=== PATIENT | female | born 1960 | race Caucasian/White ===

== ENCOUNTER 2017-08-02 11:12 | Observation (INO) | payer BC ==
[~2017-08-02] VITALS: Ht 167.6 cm; Wt 75.0 kg
[2017-08-02] VITALS (7 sets, daily range): BP systolic 108–124; BP diastolic 58–73; PULSE 72–88; RESP 16–17; TEMP 96.7–98.1; O2SAT 93–98
[~2017-08-02 11:12] MED LIST: CALTTAB2 PO; CENTTAB9 PO; METR0.756 EX; OMEGCAP2 OR; SYNT137T PO; VIBR50SY PO
[2017-08-02] MEDS ORDERED: LEVO.15 PO (11:17)
--- NOTE | 2017-08-02 11:22 | PD ---
HPI Chief Complaint: Chest Pain Time Seen by Provider: 11:16 Travel History International Travel<30 days: No Contact w/Intl Traveler<30days: No Traveled to known affect area: No History of Present Illness HPI 56 y/o female presents chest pressure that goes into her jaw and arm this started yesterday. She states it feels like a tightness. She denies prior history of this. She denies any history of cardiac issues her routine cardiac workup. She states she took a baby aspirin prior to arrival. She denies any other concurrent complaints. Duration is since yesterday. PFSH Past Medical History Cancer: No Cardiovascular Problems: No Diabetes: No Endocrine: Yes (thyroid) Genitourinary: No Hepatitis: No Hiatal Hernia: No Immune Disorder: No Musculoskeletal: No Neurologic: No Psychiatric: No Reproductive: No Respiratory: No Thyroid Disease: Yes (THYROIDECTOMY) ?: Not Past Surgical History AICD: No Gynecologic Surgery: Yes (TUBAL PREG., ) Joint Replacement: No Pacemaker: No Family History Narrative Family History father with stroke Family Myocardial Infarction: No Social History Tobacco Use: No Substance Use: No Allergies-Medications (Allergen,Severity, Reaction): Coded Allergies: No Known Allergies (Unverified , 08/02/17) Reported Meds & Prescriptions Reported Meds & Active Scripts Active Reported Synthroid (Levothyroxine Sodium) 150 Mcg Tab 150 Mcg PO DAILY Review of Systems Except as stated in HPI: all other systems reviewed are Neg Physical Exam Narrative GENERAL: Well-nourished, well-developed patient. Well-appearing SKIN: Warm and dry. HEAD: Normocephalic and atraumatic. EYES: No injection or drainage. ENT: No nasal drainage noted. NECK: Supple, trachea midline. CARDIOVASCULAR: Regular rate and rhythm RESPIRATORY: Breath sounds equal bilaterally. No accessory muscle use. GASTROINTESTINAL: Abdomen soft, non-tender, nondistended. EXTREMITIES: No edema. NEUROLOGICAL: Awake and alert. Motor and sensory grossly within normal limits. Normal speech. Data Data Last Documented VS Vital Signs Date Time Temp Pulse Resp B/P (MAP) Pulse Ox O2 Delivery O2 Flow Rate FiO2 08/02/17 11:21 Room Air 08/02/17 11:20 124/65 (84) 108/71 (83) 08/02/17 11:19 97 08/02/17 11:16 98.1 88 17 Orders Orders Electrocardiogram (08/02/17 11:16) B-Type Natriuretic Peptide (08/02/17 11:16) Ckmb (Isoenzyme) Profile (08/02/17 11:16) Complete Blood Count With Diff (08/02/17 11:16) Comprehensive Metabolic Panel (08/02/17 11:16) D-Dimer (08/02/17 11:16) Magnesium (Mg) (08/02/17 11:16) Prothrombin Time / Inr (Pt) (08/02/17 11:16) Act Partial Throm Time (Ptt) (08/02/17 11:16) Troponin I (08/02/17 11:16) Chest, Single Ap (08/02/17 11:16) Ecg Monitoring (08/02/17 11:16) Bilateral Bp Monitoring (08/02/17 11:16) Iv Access Insert/Monitor (08/02/17 11:16) Oximetry (08/02/17 11:16) Aspirin Chew (Aspirin Chew) (08/02/17 11:30) Sodium Chloride 0.9% Flush (Ns Flush) (08/02/17 11:30) Nitroglycerin Sl (Nitrostat Sl) (08/02/17 11:30) Sodium Chlorid 0.9% 500 Ml Inj (Ns 500 M (08/02/17 11:30) Admit Order (Ed Use Only) (08/02/17 12:18) Labs Laboratory Tests Test 08/02/17 11:20 White Blood Count 12.8 TH/MM3 Red Blood Count 4.86 MIL/MM3 Hemoglobin 14.7 GM/DL Hematocrit 43.7 % Mean Corpuscular Volume 90.0 FL Mean Corpuscular Hemoglobin 30.2 PG Mean Corpuscular Hemoglobin Concent 33.6 % Red Cell Distribution Width 14.0 % Platelet Count 259 TH/MM3 Mean Platelet Volume 7.6 FL Neutrophils (%) (Auto) 77.7 % Lymphocytes (%) (Auto) 14.4 % Monocytes (%) (Auto) 6.8 % Eosinophils (%) (Auto) 0.7 % Basophils (%) (Auto) 0.4 % Neutrophils # (Auto) 9.9 TH/MM3 Lymphocytes # (Auto) 1.8 TH/MM3 Monocytes # (Auto) 0.9 TH/MM3 Eosinophils # (Auto) 0.1 TH/MM3 Basophils # (Auto) 0.0 TH/MM3 CBC Comment DIFF FINAL Differential Comment Prothrombin Time 10.1 SEC Prothromb Time International Ratio 0.9 RATIO Activated Partial Thromboplast Time 26.8 SEC D-Dimer Quantitative (PE/DVT) 0.42 MG/L FEU Blood Urea Nitrogen 15 MG/DL Creatinine 0.91 MG/DL Random Glucose 102 MG/DL Total Protein 7.7 GM/DL Albumin 4.3 GM/DL Calcium Level 8.8 MG/DL Magnesium Level 2.0 MG/DL Alkaline Phosphatase 84 U/L Aspartate Amino Transf (AST/SGOT) 21 U/L Alanine Aminotransferase (ALT/SGPT) 22 U/L Total Bilirubin 0.4 MG/DL Sodium Level 140 MEQ/L Potassium Level 4.1 MEQ/L Chloride Level 105 MEQ/L Carbon Dioxide Level 28.6 MEQ/L Anion Gap 6 MEQ/L Estimat Glomerular Filtration Rate 64 ML/MIN Total Creatine Kinase 63 U/L Troponin I LESS THAN 0.02 NG/ML B-Type Natriuretic Peptide 35 PG/ML MDM Medical Decision Making Medical Screen Exam Complete: Yes Emergency Medical Condition: Yes Medical Record Reviewed: Yes (pmh confirmed) Interpretation(s) EKG shows NSR, no ST elevation or depression, and no arrhythmias. No significant T-wave inversions. CBC & BMP Diagram 08/02/17 11:20 Total Protein 7.7, Albumin 4.3, Calcium Level 8.8, Magnesium Level 2.0, Alkaline Phosphatase 84, Aspartate Amino Transf (AST/SGOT) 21, Alanine Aminotransferase (ALT/SGPT) 22, Total Bilirubin 0.4 Differential Diagnosis [place], gastritis, pneumothorax, PE, musculoskeletal Narrative Course Will check blood work, chest x-ray, EKG and dose with aspirin and nitroglycerin and reevaluate ed workup no acute, agrees to [facility] [place] observation Diagnosis Primary Impression: Chest pain Qualified Codes: R07.9 - Chest pain, unspecified Admitting Information Admitting Physician Requests: Observation Luly Marte MD Aug 02, 2017 11:22
[2017-08-02] MEDS ORDERED: SODIUM CHLORIDE 0.9% FLUSH 10 ML FLUSH IVF PRN (11:30)
[2017-08-02] MEDS ORDERED: SODIUM CHLORID 0.9% 500 ML INJ 500 ML IV ONE (11:30)
[2017-08-02] MEDS ORDERED: ASPIRIN 81 MG CHEW TAB PO ONE (11:30)
[2017-08-02] MEDS ORDERED: NITROGLYCERIN 0.4 MG SL 25 TABS/BTL SL ONE (11:30)
--- NOTE | 2017-08-02 11:34 | RADRPT ---
EXAM DATE/TIME: 08/02/2017 11:18 [facility] COMPARISON: No previous studies available for comparison. INDICATIONS : Chest pain today. MEDICAL HISTORY : Carcinoma, thyroid. SURGICAL HISTORY : Removed thyroid. ENCOUNTER: Initial ACUITY: 1 day PAIN SCORE: 7/10 LOCATION: Bilateral chest FINDINGS: The cardiac silhouette is enlarged in transverse diameter. The lungs are free of acute parenchymal op acity. No effusions are identified. Osseous structures are intact. CONCLUSION: Cardiomegaly. No acute cardiopulmonary disease. Christiano Aguiar MD on August 02, 2017 at 11:32 Board Certified Radiologist. This report was verified electronically.
[2017-08-02 11:39] LABS: AUTOMATED NEUTROPHIL # 9.9 TH/MM3 (1.8-7.7); BASOPHIL % 0.4 % (0.0-2.0); EOSINOPHIL # 0.1 TH/MM3 (0-0.4); EOSINOPHIL % 0.7 % (0.0-4.0); HEMATOCRIT 43.7 % (35.0-46.0); HEMO FLAGS DIFF FINAL; LYMPH % 14.4 % (9.0-44.0); LYMPHOCYTE # 1.8 TH/MM3 (1.0-4.8); MEAN CORPUSCULAR HEMOGLOBIN 30.2 PG (27.0-34.0); MEAN CORPUSCULAR HGB CONC 33.6 % (32.0-36.0); MONO % 6.8 % (0.0-8.0); NEUT % 77.7 % (16.0-70.0); PLATELET COUNT 259 TH/MM3 (150-450); RED BLOOD COUNT 4.86 MIL/MM3 (4.00-5.30); WHITE BLOOD COUNT 12.8 TH/MM3 (4.0-11.0)
[2017-08-02 11:51] LABS: APTT (PATIENT) 26.8 SEC (24.3-30.1); INTERNATIONAL NORMALIZED RATIO 0.9 RATIO; PROTHROMBIN TIME - PATIENT 10.1 SEC (9.8-11.6)
[2017-08-02 11:57] LABS: ALT (GPT) 22 U/L (10-53)
[2017-08-02 12:01] LABS: ALKALINE PHOSPHATASE 84 U/L (45-117); ANION GAP 6 MEQ/L (5-15); AST (GOT) 21 U/L (15-37); BICARBONATE 28.6 MEQ/L (21.0-32.0); BLOOD UREA NITROGEN 15 MG/DL (7-18); CHLORIDE 105 MEQ/L (98-107); CREATINE KINASE 63 U/L (26-192); GLOMERULAR FILTRATION RATE 64 ML/MIN (>89); POTASSIUM 4.1 MEQ/L (3.5-5.1); SODIUM (NA) 140 MEQ/L (136-145); TOTAL BILIRUBIN ADULT 0.4 MG/DL (0.2-1.0)
[2017-08-02] MEDS ORDERED: ATROPINE/SCOPOLAM/HYOSCYAM/PB ELIXIR 10 ML CUP PO ONE (13:45)
[2017-08-02] MEDS ORDERED: SODIUM CHLORIDE 0.9% FLUSH 5 ML FLUSH IVF PRN (13:45)
[2017-08-02] MEDS ORDERED: ACETAMINOPHEN/HYDROcodone 325 MG/7.5 MG TAB PO PRN (13:45)
[2017-08-02] MEDS ORDERED: ONDANSETRON HCL 4 MG/2 ML VIAL IV PRN (13:45)
[2017-08-02] MEDS ORDERED: LIDOCAINE VISCOUS 2% SOLN 15 ML UDC PO ONE (13:45)
[2017-08-02] MEDS ORDERED: ALUMINUM/MAGNESIUM/SIMETH 30 ML CUP PO ONE (13:45)
[2017-08-02] MEDS ORDERED: ACETAMINOPHEN 500 MG CPLT PO PRN (13:45)
--- NOTE | 2017-08-02 13:52 | HHI.HP ---
HPI Primary Care Physician Unknown Chief Complaint Chest pain History of Present Illness This is a 56-year-old female that presents to ED with a complaint of chest discomfort that woke her 4:00 this morning. She describes it as a heaviness. It is been there constantly however intensity waxes and wanes. She is found that taking a deep breath does worsen the discomfort. She denies shortness breath nausea or diaphoresis with the discomfort. Discomfort is radiating into her left arm and up the left side of her neck. She cannot recall having issues like this in the past. Cannot recall any recent stress testing. Denies recent illness. Denies fevers or chills. Denies recent travel. Review of Systems General: Patient denies fevers, chills recent, and recent travel. HEENT: Patient denies headache, sore throat, difficulty swallowing. Cardiovascular: Has the chest discomfort as mentioned above. Denies sensation of heart beating rapidly or irregularly. No syncope. Denies diaphoresis. Respiratory: Discomfort is worsened with deep inspiration. Denies shortness of breath. Denies coughing wheezing or hemoptysis. GI: Patient denies nausea, vomiting, diarrhea, abdominal pain, bloody stools. Musculoskeletal: Patient denies joint pain or edema. Denies calf pain or edema. Neurovascular: Patient denies numbness, tingling, weakness in extremities. Denies headache. Endocrine: Denies polyuria and polydipsia. Hematologic: Denies easy bruising. Skin: Denies rash or itching. Past Family Social History Allergies: Coded Allergies: No Known Allergies (Unverified , 08/02/17) Past Medical History Hypothyroidism. She states her ankles are chronically edematous and will take Dyazide for that on an as-needed basis. Denies hypertension, hyperlipidemia, diabetes, and known CAD. Past Surgical History Cordectomy. Hernia repair. Ectopic . Reported Medications Reported Meds & Active Scripts Active Reported Synthroid (Levothyroxine Sodium) 150 Mcg Tab 150 Mcg PO DAILY Active Ordered Medications Current Medications Medications (Trade) Dose Ordered Sig/Jesus Route Start Time Stop Time Status Last Admin (NS Flush) 2 ml UNSCH PRN IVF 08/02/17 11:30 (NS Flush) 2 ml UNSCH PRN IVF 08/02/17 13:45 UNV (NS Flush) 2 ml BID IVF 08/02/17 21:00 UNV (Tylenol) 500 mg Q4H PRN PO 08/02/17 13:45 UNV ([place] 7.5-325 Mg) 1 tab Q4H PRN PO 08/02/17 13:45 UNV (Zofran Inj) 4 mg Q6H PRN IV 08/02/17 13:45 UNV (Xylocaine 2% Viscous) 10 ml STAT ONCE PO 08/02/17 13:45 08/02/17 13:46 UNV ( Liq) 10 ml NOW ONCE PO 08/02/17 13:45 08/02/17 13:46 UNV (Mag-Al Plus Susp Liq) 30 ml STAT ONCE PO 08/02/17 13:45 08/02/17 13:46 UNV Family History Denies family history of CAD. Social History Nonsmoker. Rarely has alcohol. Denies illicit drugs. Physical Exam Vital Signs Vital Signs Date Time Temp Pulse Resp B/P (MAP) Pulse Ox O2 Delivery O2 Flow Rate FiO2 08/02/17 11:21 Room Air 08/02/17 11:20 124/65 (84) 108/71 (83) 08/02/17 11:19 97 Room Air 08/02/17 11:16 98.1 88 17 124/65 (84) 98 Physical Exam GENERAL: This is a well-nourished, well-developed patient, in no apparent distress. Patient speaks in clear complete sentences. Patient is pleasant. HEENT: Head is atraumatic and normocephalic. Neck is supple without lymphadenopathy and trachea is midline. No JVD or carotid bruits. CARDIOVASCULAR: Regular rate and rhythm without murmurs, gallops, or rubs. RESPIRATORY: Clear to auscultation. Breath sounds equal bilaterally. No wheezes , rales, or rhonchi. Chest wall is nontender. No use of accessory muscles. GASTROINTESTINAL: Abdomen is nontender, nondistended. Abdomen soft. No obvious pulsatile mass or bruit. No CVA tenderness. Normal bowel sounds in all quadrants. MUSCULOSKELETAL: Patient is moving upper and lower extremities freely. No calf tenderness or edema, no Homans sign. Strong pulses in upper and lower extremities. NEUROLOGICAL: Patient is alert and oriented. Cranial nerves 2-12 are grossly intact. No focal deficits and speech is clear. SKIN: No rash and turgor is normal. Laboratory Laboratory Tests Test 08/02/17 11:20 White Blood Count 12.8 Red Blood Count 4.86 Hemoglobin 14.7 Hematocrit 43.7 Mean Corpuscular Volume 90.0 Mean Corpuscular Hemoglobin 30.2 Mean Corpuscular Hemoglobin Concent 33.6 Red Cell Distribution Width 14.0 Platelet Count 259 Mean Platelet Volume 7.6 Neutrophils (%) (Auto) 77.7 Lymphocytes (%) (Auto) 14.4 Monocytes (%) (Auto) 6.8 Eosinophils (%) (Auto) 0.7 Basophils (%) (Auto) 0.4 Neutrophils # (Auto) 9.9 Lymphocytes # (Auto) 1.8 Monocytes # (Auto) 0.9 Eosinophils # (Auto) 0.1 Basophils # (Auto) 0.0 CBC Comment DIFF FINAL Differential Comment Prothrombin Time 10.1 Prothromb Time International Ratio 0.9 Activated Partial Thromboplast Time 26.8 D-Dimer Quantitative (PE/DVT) 0.42 Blood Urea Nitrogen 15 Creatinine 0.91 Random Glucose 102 Total Protein 7.7 Albumin 4.3 Calcium Level 8.8 Magnesium Level 2.0 Alkaline Phosphatase 84 Aspartate Amino Transf (AST/SGOT) 21 Alanine Aminotransferase (ALT/SGPT) 22 Total Bilirubin 0.4 Sodium Level 140 Potassium Level 4.1 Chloride Level 105 Carbon Dioxide Level 28.6 Anion Gap 6 Estimat Glomerular Filtration Rate 64 Total Creatine Kinase 63 Troponin I LESS THAN 0.02 B-Type Natriuretic Peptide 35 Result Diagram: 08/02/17 1120 08/02/17 1120 Course Initial EKG has sinus rhythm without significant ST segment depressions or elevations. Caprini VTE Risk Assessment Caprini VTE Risk Assessment: No/Low Risk (score <= 1) Caprini Risk Assessment Model Point Value = 1 Point Value = 2 Point Value = 3 Point Value = 5 Age 41-60 Minor surgery BMI > 25 kg/m2 Swollen legs Varicose veins or History of unexplained or recurrent spontaneous Oral contraceptives or hormone replacement Sepsis (< 1 month) Serious lung disease, including pneumonia (< 1 month) Abnormal pulmonary function Acute myocardial infarction Congestive heart failure (< 1 month) History of inflammatory bowel disease Medical patient at bed rest Age 61-74 Arthroscopic surgery Major open surgery (> 45 min) Laparoscopic surgery (> 45 min) Malignancy Confined to bed (> 72 hours) Immobilizing plaster cast Central venous access Age >= 75 History of VTE Family history of VTE Factor V Leiden Prothrombin [id number] Lupus anticoagulant Anticardiolipin antibodies Elevated serum homocysteine Heparin-induced thrombocytopenia Other congenital or acquired thrombophilia Stroke (< 1 month) Elective arthroplasty Hip, pelvis, or leg fracture Acute spinal cord injury (< 1 month) Prophylaxis Regimen Total Risk Factor Score Risk Level Prophylaxis Regimen 0-1 Low Early ambulation 2 Moderate Order ONE of the following: *Sequential Compression Device (SCD) *Heparin 5000 units SQ BID 3-4 Higher Order ONE of the following medications: *Heparin 5000 units SQ TID *Enoxaparin/Lovenox 40 mg SQ daily (WT < 150 kg, CrCl > 30 mL/min) *Enoxaparin/Lovenox 30 mg SQ daily (WT < 150 kg, CrCl > 10-29 mL/min) *Enoxaparin/Lovenox 30 mg SQ BID (WT < 150 kg, CrCl > 30 mL/min) AND/OR *Sequential Compression Device (SCD) 5 or more Highest Order ONE of the following medications: *Heparin 5000 units SQ TID (Preferred with Epidurals) *Enoxaparin/Lovenox 40 mg SQ daily (WT < 150 kg, CrCl > 30 mL/min) *Enoxaparin/Lovenox 30 mg SQ daily (WT < 150 kg, CrCl > 10-29 mL/min) *Enoxaparin/Lovenox 30 mg SQ BID (WT < 150 kg, CrCl > 30 mL/min) AND *Sequential Compression Device (SCD) Assessment and Plan Assessment and Plan * Chest pain: Patient will continue to have serial cardiac enzymes and EKGs for ruling out purposes. She will be seen by Dr. Christiano Mata of cardiology in the chest pain center and likely undergo a Matthew protocol ETT if she rules out. She'll be discharged home if stress test is nonischemic with instructions to follow-up with PCP and return to ED for interval issues. * Hypothyroidism: Continue current medication. Patient is stable at this time. She is agreeable to this plan. Chad Joe Aug 02, 2017 13:52
--- NOTE | 2017-08-02 13:56 | EKG ---
Date Performed: 08/02/2017 Time Performed: 11:20:27 PTAGE: 56 years EKG: Sinus rhythm NORMAL ECG PREVIOUS TRACING : 08/01/2017 18.28 DOCTOR: Jc Billings Interpretating Date/Time 08/02/2017 13:55:58
[2017-08-02 15:12] LABS: CREATINE KINASE 55 U/L (26-192)
[2017-08-02] MEDS ORDERED: KETOROLAC TROMETHAMINE 30 MG/ML (IVP) VIAL IV PUSH ONE (17:15)
--- NOTE | 2017-08-02 17:17 | EKG ---
Date Performed: 08/02/2017 Time Performed: 14:09:47 PTAGE: 56 years EKG: Sinus rhythm ABNORMAL ECG PREVIOUS TRACING : 08/02/2017 11.20 Since previous tracing, no significant change noted DOCTOR: Christiano Mata Interpretating Date/Time 08/02/2017 17:16:14
--- NOTE | 2017-08-02 17:17 | EKG ---
Date Performed: 08/02/2017 Time Performed: 15:16:11 PTAGE: 56 years EKG: Sinus rhythm NORMAL ECG INTERPRETATION BASED ON A DEFAULT AGE OF 40 YEARS NO PREVIOUS TRACING DOCTOR: Christiano Mata Interpretating Date/Time 08/02/2017 17:15:48
--- NOTE | 2017-08-02 17:50 | RADRPT ---
EXAM DATE/TIME: 08/02/2017 17:32 [facility] COMPARISON: No previous studies available for comparison. INDICATIONS : Chest pains for one day. RADIATION DOSE: 5.57 CTDIvol (mGy) MEDICAL HISTORY : None SURGICAL HISTORY : Thyroidectomy. ENCOUNTER: Initial ACUITY: 1 day PAIN SCALE: 5/10 LOCATION: Bilateral chest TECHNIQUE: Volumetric scanning of the chest was performed. Using automated exposure control and adjustment of t he mA and/or kV according to patient size, radiation dose was kept as low as reasonably achievable to obtain optimal diagnostic quality images. DICOM format image data is available electronically for r eview and comparison. Follow-up recommendations for detected pulmonary nodules are based at a minimum on nodule size and pa tient risk factors according to Fleischner Society Guidelines. FINDINGS: LUNGS: There is mild basilar infiltrate or atelectasis, slightly worse on the left than the right. PLEURAE: There is no pleural thickening or pleural effusion. MEDIASTINUM: The heart and great vessels demonstrate no acute abnormality. There is no mediastinal or hilar lymph adenopathy. AXILLAE: Within normal limits. No lymphadenopathy. MUSCULOSKELETAL: Within normal limits for patient age. MISCELLANEOUS: The visualized upper abdominal organs demonstrate no acute abnormality. CONCLUSION: Mild basilar infiltrates. Jose Luis Barber MD on August 02, 2017 at 17:46 Board Certified Radiologist. This report was verified electronically.
[2017-08-02] MEDS: SODIUM CHLORIDE 0.9% FLUSH 5 ML FLUSH IVF SCH (20:42)
[2017-08-03 01:18] LABS: CREATINE KINASE 37 U/L (26-192)
[2017-08-03 04:00] VITALS: BP 114/62; PULSE 83; RESP 20; TEMP 99.1; O2SAT 96
[2017-08-03 07:58] VITALS: BP 105/63; PULSE 123; RESP 20; TEMP 99; O2SAT 94
[2017-08-03 08:00] VITALS: PULSE 96
--- NOTE | 2017-08-03 08:25 | PD.CARD.PN ---
Subjective Subjective Remarks Pleuritic chest discomfort has improved but still present. No other symptoms. Objective Vital Signs / I&O Vital Signs Date Time Temp Pulse Resp B/P (MAP) Pulse Ox O2 Delivery O2 Flow Rate FiO2 08/03/17 07:58 99.0 123 20 105/63 (77) 94 08/03/17 04:00 99.1 83 20 114/62 (79) 96 08/02/17 17:36 77 08/02/17 16:48 96.7 81 122/61 (81) 93 08/02/17 14:46 78 16 109/58 (75) 99 08/02/17 13:48 21 08/02/17 13:30 72 16 123/73 (90) 97 Room Air 08/02/17 11:21 Room Air 08/02/17 11:20 124/65 (84) 108/71 (83) 08/02/17 11:19 97 Room Air 08/02/17 11:16 98.1 88 17 124/65 (84) 98 I/O 08/02/17 08/02/17 08/02/17 08/03/17 08/03/17 08/03/17 07:00 15:00 23:00 07:00 15:00 23:00 Intake Total 500 ml 240 ml 220 ml Output Total 300 ml Balance 500 ml 240 ml -80 ml Intake Oral 240 ml 220 ml IV Total 500 ml Output Urine Total 300 ml # Bowel Movements 0 Physical Exam Gen.: No distress. Sitting in chair. Speaks in clear and complete sentences. Lungs: CTA Cardiac: Regular rate and rhythm without murmur gallop or rub. GI: Nontender normal bowel sounds. Laboratory Laboratory Tests Test 08/02/17 11:20 08/02/17 14:20 08/03/17 00:26 White Blood Count 12.8 TH/MM3 Red Blood Count 4.86 MIL/MM3 Hemoglobin 14.7 GM/DL Hematocrit 43.7 % Mean Corpuscular Volume 90.0 FL Mean Corpuscular Hemoglobin 30.2 PG Mean Corpuscular Hemoglobin Concent 33.6 % Red Cell Distribution Width 14.0 % Platelet Count 259 TH/MM3 Mean Platelet Volume 7.6 FL Neutrophils (%) (Auto) 77.7 % Lymphocytes (%) (Auto) 14.4 % Monocytes (%) (Auto) 6.8 % Eosinophils (%) (Auto) 0.7 % Basophils (%) (Auto) 0.4 % Neutrophils # (Auto) 9.9 TH/MM3 Lymphocytes # (Auto) 1.8 TH/MM3 Monocytes # (Auto) 0.9 TH/MM3 Eosinophils # (Auto) 0.1 TH/MM3 Basophils # (Auto) 0.0 TH/MM3 CBC Comment DIFF FINAL Differential Comment Prothrombin Time 10.1 SEC Prothromb Time International Ratio 0.9 RATIO Activated Partial Thromboplast Time 26.8 SEC D-Dimer Quantitative (PE/DVT) 0.42 MG/L FEU Blood Urea Nitrogen 15 MG/DL Creatinine 0.91 MG/DL Random Glucose 102 MG/DL Total Protein 7.7 GM/DL Albumin 4.3 GM/DL Calcium Level 8.8 MG/DL Magnesium Level 2.0 MG/DL Alkaline Phosphatase 84 U/L Aspartate Amino Transf (AST/SGOT) 21 U/L Alanine Aminotransferase (ALT/SGPT) 22 U/L Total Bilirubin 0.4 MG/DL Sodium Level 140 MEQ/L Potassium Level 4.1 MEQ/L Chloride Level 105 MEQ/L Carbon Dioxide Level 28.6 MEQ/L Anion Gap 6 MEQ/L Estimat Glomerular Filtration Rate 64 ML/MIN Total Creatine Kinase 63 U/L 55 U/L 37 U/L Troponin I LESS THAN 0.02 NG/ML LESS THAN 0.02 NG/ML LESS THAN 0.02 NG/ML B-Type Natriuretic Peptide 35 PG/ML Imaging Last 48 hours Impressions Chest X-Ray 08/02/17 1116 Signed Impressions: Service Date/Time: Wednesday, August 02, 2017 11:18 - CONCLUSION: Cardiomegaly. No acute cardiopulmonary disease. Christiano Aguiar MD Chest CT 08/02/17 0000 Signed Impressions: Service Date/Time: Wednesday, August 02, 2017 17:32 - CONCLUSION: Mild basilar infiltrates. Jose Luis Barber MD Assessment and Plan Assessment and Plan * Atypical Chest pain: Discomfort likely pleuritic. CT of chest revealed inverted versus atelectasis both history more likely atelectasis. IV Toradol did help somewhat the discomfort. Plan will be the same. She will be discharged home at this time instructions to follow-up with PCP and return to ED for interval issues. * Hypothyroidism: Continue current medication. Patient is stable at this time. She is agreeable to this plan. Chad Joe Aug 03, 2017 08:25
--- NOTE | 2017-08-03 08:26 | HHI.DCPOC ---
Discharge Care Plan Diagnosis: (1) Chest pain, atypical (2) Hypothyroidism Goals to Promote Your Health * To prevent worsening of your condition and complications * To maintain your health at the optimal level Directions to Meet Your Goals Take your medications as prescribed Follow your dietary instruction Follow activity as directed Keep your appointments as scheduled Take your immunizations and boosters as scheduled If your symptoms worsen call your PCP, if no PCP go to Urgent Care Center or Emergency Room Smoking is Dangerous to Your Health. Avoid second hand smoke Call the 24-hour hour crisis hotline for domestic abuse at Chad Joe Aug 03, 2017 08:26
[2017-08-03] MEDS: SODIUM CHLORIDE 0.9% FLUSH 5 ML FLUSH IVF SCH (09:00)
== END 2017-08-03 09:38 | disposition home or self-care (01) ==
LOC: NEPE 11:12 → NEDA 12:19 → NEPGCP 14:55
PROVIDERS: ADMIT Internal Medicine Cardiovascular Disease; ATTEND Internal Medicine Cardiovascular Disease
DX: R07.89 Other chest pain (principal); E03.9 Hypothyroidism, unspecified; R94.31 Abnormal electrocardiogram [ECG] [EKG]; R60.9 Edema, unspecified
CPT/HCPCS: 71010; 71250; 80053; 82550; 83735; 83880; 84484; 85025; 85379; 85610; 85730; 93005; 96361; 96374; 99285; G0378; J1885; J7040